=== PATIENT | male | born 1955 | race American Indian/Alaskan Native ===

== ENCOUNTER 2021-11-07 16:49 | Emergency (ER) | payer SELFPAY ==
[2021-11-08 02:05] LABS: Basophils % (Auto) 0.8 % (0.0-1.8); Eosinophils # (Auto) 0.1 K/mm3 (0.0-0.4); Eosinophils % (Auto) 2.3 % (0.0-4.3); Hematocrit 37.4 % (35.5-45.6); Hemoglobin 12.3 gm/dl (11.8-15.2); Lymphocytes # (Auto) 2.1 K/mm3 (1.2-5.4); Lymphocytes % (Auto) 33.3 % (13.4-35.0); Mean Corpuscular HGB Conc 33 % (32-34); Mean Corpuscular Volume 95 fl (84-94); Monocytes # (Auto) 0.9 K/mm3 (0.0-0.8); Monocytes % (Auto) 13.8 % (0.0-7.3); Platelet Count 101 K/mm3 (140-440); Red Blood Count 3.95 M/mm3 (3.65-5.03); Red Cell Distribution Width 12.3 % (13.2-15.2)
[2021-11-08 02:24] LABS: BUN/Creatinine Ratio 16; Blood Urea Nitrogen 14 mg/dL (9-20); Calcium 8.1 mg/dL (8.4-10.2); Hemolysis Index 7
[2021-11-08 05:28] LABS: Color,Urine Colorless (Yellow)
[2021-11-08 05:29] LABS: Bilirubin,Urine Negative (Negative); Blood,Urine Negative (Negative); PH,Urine 6.5 (5.0-7.0)
[2021-11-08 05:30] LABS: Protein,Urine <15 mg/dL mg/dL (Negative); Urobilinogen,Urine 0.2 mg/dL (<2.0)
[2021-11-08 05:31] LABS: Bacteria,Urine 1+ /HPF (Negative)
[2021-11-08 06:41] VITALS: BP 133/82
--- NOTE | 2021-11-08 06:46 | Emergency Department Report ---
ED General Adult HPI - General Chief complaint: Back Pain/Injury Stated complaint: LOW BACK PAIN Time Seen by Provider: 11/07/21 23:55 Source: EMS Mode of arrival: Stretcher Limitations: No Limitations - History of Present Illness Initial comments: 65-year-old male presents emerged department complaining lower back pain around to his flank and appears to be associated with increased urinary frequency and sometimes urinary hesitancy but reports no burning sensation, no fever, chills, sweats. Hemoptysis hematemesis hematochezia. Denies any chest pain palpitations any nausea vomiting or diarrhea. No rashes. No testicular pain. -: Gradual Severity scale (0 -10): 4 Consistency: constant Improves with: none Worsens with: none Associated Symptoms: denies other symptoms - Related Data Previous Rx's Medication Instructions Recorded Last Taken Type traMADoL [Ultram] 50 mg PO Q6HR PRN #14 tablet 11/08/21 Unknown Rx Allergies Allergy/AdvReac Type Severity Reaction Status Date / Time aspirin Allergy Unknown Verified 11/07/21 16:58 shellfish derived Allergy Unknown Verified 11/07/21 16:58 ED Review of Systems ROS: Stated complaint: LOW BACK PAIN Other details as noted in HPI Comment: All other systems reviewed and negative ED Past Medical Hx - Past Medical History Previous Medical History?: Yes Hx Congestive Heart Failure: Yes Additional medical history: TBI - Medications Home Medications: Home Medications Medication Instructions Recorded Confirmed Last Taken Type traMADoL [Ultram] 50 mg PO Q6HR PRN #14 tablet 11/08/21 Unknown Rx ED Physical Exam - General Limitations: No Limitations General appearance: alert, in no apparent distress - Head Head exam: Present: atraumatic, normocephalic - Eye Eye exam: Present: normal appearance, PERRL, EOMI Pupils: Present: normal accommodation - ENT ENT exam: Present: normal exam, normal orophraynx, mucous membranes moist - Neck Neck exam: Present: normal inspection - Respiratory Respiratory exam: Present: normal lung sounds bilaterally. Absent: respiratory distress - Cardiovascular Cardiovascular Exam: Present: regular rate, normal rhythm. Absent: systolic murmur, diastolic murmur, rubs, gallop - GI/Abdominal GI/Abdominal exam: Present: soft, normal bowel sounds - Rectal Rectal exam: Present: deferred - Extremities Exam Extremities exam: Present: normal inspection - Back Exam Back exam: Present: normal inspection, muscle spasm, paraspinal tenderness. Absent: CVA tenderness (R), CVA tenderness (L), vertebral tenderness, rash noted - Neurological Exam Neurological exam: Present: alert, oriented X3, CN II-XII intact, normal gait - Psychiatric Psychiatric exam: Present: normal affect, normal mood - Skin Skin exam: Present: warm, dry, intact, normal color. Absent: rash ED Course Vital Signs 11/07/21 11/08/21 16:55 06:40 Temperature 100.2 F H Pulse Rate 52 L 68 Respiratory 16 16 Rate Blood Pressure 173/83 133/82 [Left] O2 Sat by Pulse 100 99 Oximetry ED Medical Decision Making - Lab Data Result diagrams: 11/08/21 01:31 11/08/21 01:31 - Medical Decision Making Pt presents the emergency department complaining of back pain most consistent with musculoskeletal back Pain Most Consistent with Strain/Contusion. Differential Diagnosis Includes Lumbar Go Versus Musculoskeletal Spasm, Strain Versus Sciatica. No Back Pain Red Flags on History or Physical. Presentation Not Consistent with Malignancy, Fracture, Cauda Equina, Abdominal Aortic Aneurysm, Viscus Perforation, Pulmonary Embolism, Renal Colic, Pyelonephritis. Patient reports no B symptoms, trauma trauma, incontinence, saddle anesthesia, distal weakness, urinary symptoms. Patient did have a low-grade temperature on admission but vital signs otherwise were normal in conjunction with normal lab findings CBC, BMP and urinalysis Critical care attestation.: If time is entered above; I have spent that time in minutes in the direct care of this critically ill patient, excluding procedure time. ED Disposition Clinical Impression: Lower back pain Disposition: 01 HOME / SELF CARE / HOMELESS Is pt being admited?: No Does the pt Need Aspirin: No Condition: Stable Instructions: What You Need to Know About Chronic Back Pain, Back Exercises, Cg[facility]-za-[facility] Prescriptions: traMADoL [Ultram] 50 mg PO Q6HR PRN #14 tablet PRN Reason: Pain Referrals: MELLISSA IYER MD [Primary Care Provider] - 3-5 Days
== END 2021-11-08 06:42 | disposition home or self-care (01) ==
LOC: ED 16:49
DX: M54.50 Low back pain, unspecified (principal); I50.9 Heart failure, unspecified; Z88.6 Allergy status to analgesic agent; Z91.013 Allergy to seafood
CPT/HCPCS: 36415; 80048; 81001; 85025; 99283